=== PATIENT | female | born 1950 | race Hispanic/Latino ===

== ENCOUNTER 2020-02-15 17:37 | Emergency (ER) | payer MEDICARE ==
[~2020-02-15] VITALS: Ht 162.6 cm; Wt 84.8 kg
[2020-02-15 18:30] LABS: BASOPHILS % 0.4 % (0.0-1.0); EOSINOPHILS % 0.6 % (0.0-6.0); HEMATOCRIT 39.6 % (34.2-44.1); HEMOGLOBIN 13.1 g/dL (12.0-16.0); LYMPHOCYTES # (AUTO) 2.3 (1.0-3.2); LYMPHOCYTES % 32.5 % (18.0-39.1); MEAN CORPUSCULAR HEMOGLOBIN 30.3 pg (28-32); MEAN CORPUSCULAR HGB CONC 33.1 g/dL (31-35); MEAN CORPUSCULAR VOLUME 91.5 fL (81-99); MONOCYTES # (AUTO) 0.5 (0.2-0.8); MONOCYTES % 7.5 % (4.4-11.3); NEUTROPHILS # (AUTO) 4.2 (2.1-6.9); NEUTROPHILS % 58.7 % (38.7-80.0); PLATELET COUNT 227 x10e3/uL (140-360); RED BLOOD COUNT 4.33 x10e6/uL (3.6-5.1); RED CELL DISTRIBUTION WIDTH 13.2 % (11.7-14.4)
[2020-02-15 18:44] LABS: ALANINE AMINOTRANSFERASE 50 IU/L (0-55); ALBUMIN 3.6 g/dL (3.5-5.0); ALBUMIN/GLOBULIN RATIO 0.9 (0.8-2.0); ALKALINE PHOSPHATASE 83 IU/L (40-150); BLOOD UREA NITROGEN 14 mg/dL (7-26); BUN/CREATININE RATIO 18 (6-25); CALCIUM 9.7 mg/dL (8.4-10.2); CARBON DIOXIDE 23 mmol/L (22-29); CHLORIDE 108 mmol/L (98-107); CREATINE KINASE 42 IU/L (29-168); EST GLOMERULAR FILTRATION RATE > 60 ML/MIN (60-); GLUCOSE 93 mg/dL (74-118); SODIUM 141 mmol/L (136-145)
--- NOTE | 2020-02-15 18:48 | Emergency Department Note ---
History of Present Illnes History of Present Illness Chief Complaint: COVID PUI History of Present Illness This is a 69 year old female HERE FOR SOB, CP INTERMITTENT FOR 8 MONTHS. NON SMOKER. AAOX4. AMBULATORY. NO NOTED DISTRESSED. SKIN W/D.. states has seen pcp but has not recieved anser to why she has been having this problem, states symptoms have not changed over last 8 months . Historian: Patient Arrival Mode: Car Onset (how long ago): month(s) (8) Location: chest Quality: sob and chest discomfort Radiation: Reports non-radiation Severity: mild Onset quality: gradual Duration (how long): month(s) (8) Timing of current episode: intermittent Progression: waxing and waning Chronicity: recurrent Context: Denies recent illness, Denies recent surgery, Denies trauma/injury Relieving factors: none Exacerbating factors: none Associated symptoms: Reports denies other symptoms Past Medical/Family History Physician Review I have reviewed the patient's past medical and family history. Any updates have been documented here. Past Medical History Recent Fever: No Clinical Suspicion of Infectio: No New/Unexplained Change in Ment: No Past Medical History: Hypertension, GERD Past Surgical History: Cataract Removal Social History Smoking Cessation: Never Smoker Counseling Performed: No Alcohol Use: None Any Illegal Drug Use: No Family History Family history of heart diseas: No Other Any Pre-Existing Lines (PICC,: No Review of Systems Review of Systems Constitutional: Reports no symptoms EENTM: Reports no symptoms Cardiovascular: Reports as per HPI Respiratory: Reports as per HPI Gastrointestinal: Reports no symptoms Genitourinary: Reports no symptoms Musculoskeletal: Reports no symptoms Integumentary: Reports no symptoms Neurological: Reports no symptoms Psychological: Reports no symptoms Endocrine: Reports no symptoms Hematological/Lymphatic: Reports no symptoms Physical Exam Related Data Allergies: Coded Allergies: hydrochlorothiazide (Verified Allergy, Unknown, 02/15/20) Triage Vital Signs Vital Signs Date Time Temp Pulse Resp B/P (MAP) Pulse Ox O2 Delivery O2 Flow Rate FiO2 02/15/20 17:59 97.7 77 18 160/86 100 Room Air Vital signs reviewed: Yes Physical Exam CONSTITUTIONAL Constitutional: Present well-developed, Present well-nourished HENT HENT: Present normocephalic, Present atraumatic, Present oropharynx clear/moist, Present nose normal HENT L/R: Present left ext ear normal, Present right ext ear normal EYES Eyes: Reports PERRL, Reports conjunctivae normal NECK Neck: Present ROM normal PULMONARY Pulmonary: Present effort normal, Present breath sounds normal CARDIOVASCULAR Cardiovascular: Present regular rhythm, Present heart sounds normal, Present capillary refill normal, Present normal rate GASTROINTESTINAL Abdominal: Present soft, Present nontender, Present bowel sounds normal GENITOURINARY Genitourinary: Present exam deferred SKIN Skin: Present warm, Present dry MUSCULOSKELETAL Musculoskeletal: Present ROM normal NEUROLOGICAL Neurological: Present alert, Present oriented x 3, Present no gross motor or sensory deficits PSYCHOLOGICAL Psychological: Present mood/affect normal, Present judgement normal Results Laboratory Result Diagram: 02/15/20 1800 Laboratory Laboratory Tests Test 02/15/20 18:00 White Blood Count 7.07 x10e3/uL (4.8-10.8) Red Blood Count 4.33 x10e6/uL (3.6-5.1) Hemoglobin 13.1 g/dL (12.0-16.0) Hematocrit 39.6 % (34.2-44.1) Mean Corpuscular Volume 91.5 fL (81-99) Mean Corpuscular Hemoglobin 30.3 pg (28-32) Mean Corpuscular Hemoglobin Concent 33.1 g/dL (31-35) Red Cell Distribution Width 13.2 % (11.7-14.4) Platelet Count 227 x10e3/uL (140-360) Neutrophils (%) (Auto) 58.7 % (38.7-80.0) Lymphocytes (%) (Auto) 32.5 % (18.0-39.1) Monocytes (%) (Auto) 7.5 % (4.4-11.3) Eosinophils (%) (Auto) 0.6 % (0.0-6.0) Basophils (%) (Auto) 0.4 % (0.0-1.0) Neutrophils # (Auto) 4.2 (2.1-6.9) Lymphocytes # (Auto) 2.3 (1.0-3.2) Monocytes # (Auto) 0.5 (0.2-0.8) Eosinophils # (Auto) 0.0 (0.0-0.4) Basophils # (Auto) 0.0 (0.0-0.1) Absolute Immature Granulocyte (auto 0.02 x10e3/uL (0-0.1) Sodium Level 141 mmol/L (136-145) Potassium Level 4.0 mmol/L (3.5-5.1) Chloride Level 108 mmol/L (98-107) Carbon Dioxide Level 23 mmol/L (22-29) Anion Gap 14.0 mmol/L (8-16) Blood Urea Nitrogen 14 mg/dL (7-26) Creatinine 0.80 mg/dL (0.57-1.11) Estimat Glomerular Filtration Rate > 60 ML/MIN (60-) BUN/Creatinine Ratio 18 (6-25) Glucose Level 93 mg/dL (74-118) Calcium Level 9.7 mg/dL (8.4-10.2) Total Bilirubin 0.4 mg/dL (0.2-1.2) Aspartate Amino Transf (AST/SGOT) 44 IU/L (5-34) Alanine Aminotransferase (ALT/SGPT) 50 IU/L (0-55) Alkaline Phosphatase 83 IU/L (40-150) Creatine Kinase 42 IU/L (29-168) Creatine Kinase MB 1.20 ng/mL (0-5.0) Troponin I 0.022 ng/mL (0-0.300) B-Type Natriuretic Peptide 37.7 pg/mL (0-100) Total Protein 7.4 g/dL (6.5-8.1) Albumin 3.6 g/dL (3.5-5.0) Globulin 3.8 g/dL (2.3-3.5) Albumin/Globulin Ratio 0.9 (0.8-2.0) Laboratory Tests Test 02/15/20 18:00 White Blood Count 7.07 x10e3/uL (4.8-10.8) Red Blood Count 4.33 x10e6/uL (3.6-5.1) Hemoglobin 13.1 g/dL (12.0-16.0) Hematocrit 39.6 % (34.2-44.1) Mean Corpuscular Volume 91.5 fL (81-99) Mean Corpuscular Hemoglobin 30.3 pg (28-32) Mean Corpuscular Hemoglobin Concent 33.1 g/dL (31-35) Red Cell Distribution Width 13.2 % (11.7-14.4) Platelet Count 227 x10e3/uL (140-360) Neutrophils (%) (Auto) 58.7 % (38.7-80.0) Lymphocytes (%) (Auto) 32.5 % (18.0-39.1) Monocytes (%) (Auto) 7.5 % (4.4-11.3) Eosinophils (%) (Auto) 0.6 % (0.0-6.0) Basophils (%) (Auto) 0.4 % (0.0-1.0) Neutrophils # (Auto) 4.2 (2.1-6.9) Lymphocytes # (Auto) 2.3 (1.0-3.2) Monocytes # (Auto) 0.5 (0.2-0.8) Eosinophils # (Auto) 0.0 (0.0-0.4) Basophils # (Auto) 0.0 (0.0-0.1) Absolute Immature Granulocyte (auto 0.02 x10e3/uL (0-0.1) Lab results reviewed: Yes Imaging Imaging results reviewed: Yes Procedures 12 Lead ECG Interpretation ECG Interpretation : ECG: ECG 1 Check Embosser: Interpreted by ED physician Date: Feb 15, 2020 Time: 18:10 Rhythm: sinus rhythm Rate: normal BPM: 62 QRS axis: normal ST segments normal: Yes T waves normal: Yes Other findings: no other findings Clinical Impression: normal ECG Assessment & Plan Medical Decision Making MDM pt with chest discomfort and sob intermittently for past 8 months cbc. 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
--- NOTE | 2020-02-15 20:11 | Diagnostic Imaging Report ---
EXAMINATION: CHEST SINGLE (PORTABLE) INDICATION: Shortness of breath. COMPARISON: None FINDINGS: TUBES and LINES: None. LUNGS: Normal lung volumes. There are bibasilar opacities. PLEURA: No pleural effusion or pneumothorax. HEART AND MEDIASTINUM: The cardiomediastinal silhouette is unremarkable. BONES AND SOFT TISSUES: No acute osseous lesion. Soft tissues are unremarkable. UPPER ABDOMEN: No free air under the diaphragm. IMPRESSION: Bibasilar opacities which may represent atelectasis and/or developing pneumonia in the proper clinical context. Signed by: Mendy Jonas MD on 02/15/2020 8:08 PM
[2020-02-15 20:40] VITALS: BP 156/79
--- OUTSIDE RECORDS SUMMARY | 2020-02-15 21:36 | XMS REPORT | Clinical Summary ---
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 Drink as directed by your doctor.. Active Bisacodyl 5 mg Take by 4 tablet 0 TabIndications: Positive mouth. 5 occult stool blood test Active polyethylene glycol Add lukewarm 4000 mL 0 10/02 (GOLYTELY) 236-22.74-6.74 drinking 6 -5.86 gram oral water to the solutionIndications: fill parish (4 Occult blood positive liters) and stool shake. Drink as directed by your doctor.. Active triamcinolone (TRIDERM) Apply to 80 g 3 0.1 % topical affected area 6 creamIndications: Stasis 2 times daily dermatitis of both legs as needed (for leg rash or itching). Active fluocinonide (LIDEX) 0.05 Apply to 60 mL 3 % external affected area 6 solutionIndications: 2 times daily Sebopsoriasis as needed (scalp rash or itching). Active ketoconazole (NIZORAL) 2 Lather into 120 mL 5 0 % shampooIndications: scalp three 6 Seborrhea times a week. Then rinse off.. Active ibuprofen (MOTRIN) 600 mg Take 1 tablet 30 tablet 0 tabletIndications: Closed by mouth 6 fracture of one rib of every 8 hours left side, sequela as needed for Pain. Active alendronate (FOSAMAX) 35 Take 1 tablet 12 tablet 6 mg tabletIndications: once a week 6 Osteopenia on empty stomach with 8 oz of water and remain upright for 30 minutes. Active Problems Problem Noted Date Left posterior capsular opacification 11/08/2016 Osteopenia - starting on fosamax 04/05/2016 Squamous cell carcinoma in situ of skin - shave biops y of abdominal lesion 11/24/2015 Prediabetes 07/01/2015 Positive occult stool blood test colonscopy done dive rticulosis, AVM and 06/14/2015 internal hemorroids Macular hole of left eye 07/15/2014 Cataract 07/15/2014 Vitreomacular traction 07/15/2014 Obese 06/07/2014 Refusal of blood transfusions as patient is [employer] 05/31/2014 HTN (hypertension) - diet controlled 12/13/2012 Depression with anxiety -Used to be on celexa stopped taking it 09/01/2012 Overview: Used to be on celexa stopped taking it Non-cardiac chest pain 07/13/2012 Overview: S/p NM 2013 1. Myocardial perfusion imaging is norm al. 2. No scan evidence of ischemia or scar 3. Overall left ventricular systolic fu nction is normal with normal wall motion. 4. Normal gated SPECT left ventricular ejection fraction >54%. Depression with somatization - not on meds 2 Immunizations Name Administration Dates Next Due Herpes Zoster Vaccine In 07/01/2015 Clinic Influenza Vaccine 07/13/2012 (Deferred: Patie nt Refused) PNEUMOCOCCAL 23-VALPS 07/13/2012 (Deferred: Patie nt Refused) VACCINE 25 MCG/0.5 ML INJECTION PPV 23 Pneumococcal 11/19/2013 Polysaccaride Pneumococcal 13-valent 03/26/2016 conj 0.5 mL injection Tdap Tetanus, diphtheria, 12/20/2012 acellular pertussis Vaccine Family History Medical History Relation Name Comments Hypertension Mother Relation Name Status Comments Mother Alive Social History Date Tobacco Use Types Packs/Day Years Used Never Smoker Smokeless Tobacco: Never Used Tobacco Cessation: Counseling Given: Yes Drinks/Week oz/Week Comments Alcohol Use No Sex Assigned at Date Recorded Not on file Industry Job Start Date Occupation Not on file Not on file Not on file Travel End Travel History Travel Start No recent travel history available. Last Filed Vital Signs Not on file Plan of Treatment Health Maintenance Due Date Last Done Comments Breast Cancer Scrn 07/02/2016 07/02/2015, (Yearly) 12/12/2013, 10/27/2012 Colonoscopy 10yr 12/18/2025 12/19/2015 IMM Pneumococcal Age 63 Addressed 03/26/2016 Overri dden with the intention of not completing and Up the topic Implants Device Identifier Shelf Expiration Date Model / Serial / L ot Implanted Type Area Manufactur er 05/16/2018 / [id number] / Implant [employer] 1 Piece Implant Left: Eye(s) [id number] 19.0d - [id number] eye Implanted: Qty: 1 on 06/24/2014 by Ever Sanz, Resident () at [facility] 03/20/2019 / [id number] / Implant [employer] 1 Piece Implant Right : Eye(s) [id number] 20.0d - [id number] eye Implanted: Qty: 1 on 05/19/2015 at [facility] Results Not on fileafter 02/14/2019 Insurance Type Payer Benefit Subscriber ID Effective Phone Address Plan / Dates Group AETNA MEDICARE AETNA xxxxxxxx 2013- [phone] [address] [facility] Present [address] [place] [address] Advance Directives Date Inactivated Comments Code Status Date Activated 07/13/2012 1:11 PM Full Code 07/13/2012 12:11 AM
--- OUTSIDE RECORDS SUMMARY | 2020-02-15 21:36 | XMS REPORT | Continuity of Care Document ---
Author Author [facility] t Organization [facility] Address [address] [place] [address] Phone Unavailable Care Team Providers Care [facility] Consultant Name Role Phone NONSTAFF PCP Unavailable Dann STEPHEN Unavailable Payers Payer Name Policy Type Policy Number Effective Date Expiration Date 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 Disease Active 2015-11-24 00:00:00 [facility] Prediabetes Prediabetes Disease Active 2015-07-01 00:00:00 [facility] Positive occult stool blood test colonsc opy done diverticulosis, AVM and internal hemorroids Positive occult stool blood test colonsc opy done diverticulosis, AVM and internal hemorroids Disease Active 2014 00:00:00 [facility] Macular hole of left eye Macular hole of left eye Disease Acti ve 2014-07-15 00:00:00 [facility] Cataract Cataract Disease Active 2014-07-15 00:00:00 [facility] Vitreomacular traction Vitreomacular traction Disease Active 2014-07-15 00:00:00 [facility] Obese Obese Disease Active 2014-06-07 00:00:00 [facility] Refusal of blood transfusions as patient is Anglican Refusal of blood transfusions as patient is Anglican Disease Active 201 10-26-13 00:00:00 [facility] HTN (hypertension) - diet controlled HTN (hypertension) - di et controlled Disease Active 2012-12-13 00:00:00 [facility] Depression with anxiety -Used to be on celexa stopped taking it Depression with anxiety -Used to be on celexa stopped taking it Disease Active 2012-09-01 00:00:00 Overview: Used to be on arin xa stopped taking it [facility] Non-cardiac chest pain Non-cardiac chest pain Disease Active 2012-07-13 00:00:00 Overview: S/p NM . Myocardial perfusion imaging is normal. 2. No scan evidence of ischemia or scar 3. Overall left ventricular systolic function is normal with normal wall motion. 4. Normal gated SPECT left ventricular ejection fraction >54%. [facility] Depression with somatization - not on meds Depression with somatization - not on meds Disease Active 2012-07-13 00:00:00 [facility] Dyspnea Problem Active [facility] Chest discomfort Problem Active [facility] Allergies, Adverse Reactions, Alerts Allergy Name Allergy Type Status Severity Reaction(s) Onset Date Inacti ve Date Treating Clinician Comments Source Hydrochlorothiazide Allergy to substance Active 2020-02-15 00:00:00 [facility] hydrochlorothiazide DA Active U 2019-03-03 00:00:00 [facility] unknown htn med DA Active SV 2017-10-23 00:00:00 [facility] Hydrochlorothiazide Propensity to adverse reactions to drug Active Other 2014-05-31 00:00:00 Headaches, arm pain, fatigue [facility] Aspirin Propensity to adverse reactions to drug Active 2014-03-05 00:00:00 Pt reports bruising in past upon taking every other day and pt refuses to take it [facility] Family History Family Member Diagnosis Comments Start Date Stop Date Source Natural mother Hypertension [facility] Social History Social Habit Start Date Stop Date Quantity Comments Source Sex Assigned At [facility] Alcohol intake 2016-11-19 00:00:00 2016-11-19 00:00:00 Current non-drinker of alcohol (finding) [facility] Smoking Status Start Date Stop Date Source Never smoker [facility] Medications Ordered Medication Name Filled Medication Name Start Date Stop Da te Current Medication? Ordering Clinician Indication Dosage Frequency Signature (SIG) Comments Components Source alendronate (FOSAMAX) 35 mg tablet 2016-04-05 00:00:00 Yes Osteopenia Take 1 tablet once a week on empty stomach with 8 oz of water and remain upright for 30 minutes. [facility] ibuprofen (MOTRIN) 600 mg tablet 2016-02-19 00:00:00 Yes Closed fracture of one rib of left side, sequela 600mg Take 1 tablet by mouth every 8 hours as needed for Pain. [facility] ketoconazole (NIZORAL) 2 % shampoo 2015-12-25 00:00:00 Yes Seborrhea Lather into scalp three times a week. Then rinse off.. [facility] triamcinolone (TRIDERM) 0.1 % topical cream 2015-11-19 00:00 :00 Yes Stasis dermatitis of both legs Apply to affecte d area 2 times daily as needed (for leg rash or itching). [facility] fluocinonide (LIDEX) 0.05 % external solution 2015-11-19 00: 00:00 Yes Sebopsoriasis Apply to affected ar ea 2 times daily as needed (scalp rash or itching). [facility] polyethylene glycol (GOLYTELY) 236-22.74-6.74 -5.86 gram ora l solution 2015-10-03 00:00:00 Yes Occult blood positive stool Add lukewarm drinking water to the fill [place] (4 liters) and shake. Drink as directed by your doctor.. [facility] Bisacodyl 5 mg Tab 2015-07-01 00:00:00 Yes Positive occult stool blood test Take by mouth. [facility] polyethylene glycol (GOLYTELY) 236-22.74-6.74 -5.86 gram ora l solution 2015-06-14 00:00:00 Yes Positive occult stool blood te st Add lukewarm drinking water to the [place] (4 liters) and shake. Drink as directed by your doctor.. [facility] Immunizations Ordered Immunization Name Filled Immunization Name Date Status Comments Source Pneumococcal 13-valent conj 0.5 mL injection 2016-03-26 00 :00:00 Completed [facility] Herpes Zoster Vaccine In Clinic 2015-07-01 00:00:00 Comple karen [facility] PPV 23 Pneumococcal Polysaccaride 2013-11-19 00:00:00 Comp leted [facility] Tdap Tetanus, diphtheria, acellular pertussis Vaccine 2012-12-20 00:00:00 Completed [facility] Vital Signs Vital Name Observation Time Observation Value Comments Source Weight 2020-02-15 17:59:00 187 [lb_av] [facility] BMI (Body Mass Index) 2020-02-15 17:59:00 32.1 kg/m2 [facility] Procedures This patient has no known procedures. Plan of Care Planned Activity Planned Date Details Comments Source Future Scheduled Test 2025-12-18 00:00:00 Screening for terri gnant neoplasm of colon (procedure) [code = 979273572] [facility] Future Scheduled Test 2016-07-02 00:00:00 Breast Cancer Scrn (Yearly) [code = Breast Cancer Scrn (Yearly)] [facility] Encounters Start Date/Time End Date/Time Encounter Type Admission Type [email or web address] Care Department Encounter ID Source 2020-02-15 18:41:00 2020-02-15 18:41:00 Registered Emergency Room 1 VALERY STEPHEN [facility] [id number] I [facility] 2015-08-08 13:11:48 2015-08-08 13:11:48 Outpatient [facility] [id number] [facility] Results Test Description Test Time Test Comments Results Result Comments Source CHEST SINGLE (PORTABLE) 2020-02-15 20:07:00 [facility] [address] [place] [address] Patient Name: KAVEH MEDINA MR #: [id number] : 1950 Age/Sex: 69/F Req #: [id number] Adm Physician: Ordered by: VALERY STEPHEN MD Report #: [id number] Location: ER Room/Bed: Procedure: [id number] DX/CHEST SINGLE (PORTABLE) Exam Date: 02/15/20 Exam Time: 1900 REPORT STATUS: Signed EXAMINATION: CHEST SINGLE (PORTABLE) INDICATION: Shortness of breath. COMPARISON: None FINDINGS: TUBES and LINES: None. LUNGS: Normal lung volumes. There are bibasilar opacities. PLEURA: No pleural effusion or pneumothorax. HEART AND MEDIASTINUM: The cardiomediastinal silhouette is unremarkable. BONES AND SOFT TISSUES: No acute osseous lesion. Soft tissues are unremarkable. UPPER ABDOMEN: No free air under the diaphragm. IMPRESSION: Bibasilar opacities which may represent atelectasis and/or developing pneumonia in the proper clinical context. Signed by: Jarod Clay MD on 02/15/2020 8:08 PM Dictated By: JAROD CLAY MD 07 Transcribed By: NARESH on 02/15/202007 COPY TO: VALERY STEPHEN MD Blood leukocytes automated count (number/volume) 2020-02-15 18:00:00 Test Item White Blood Count (test code = 6690-2) 7.07 4.8-10.8 [facility] count (number/volume)2020-02-15 18:00:00* Test Item Value Reference Range Interpretation Comments Red Blood Count (test code = 789-8) 4.33 3.6-5.1 [facility] measurement (moles/volume)2020-02-15 18:00:00* Test Item Value Reference Range Interpretation Comments Hemoglobin (test code = 72659-1) 13.1 12.0-16.0 [facility] Center[facility]ated blood hematocrit (volume fraction)2020-02-15 18:00:00* Test Item Value Reference Range Interpretation Comments Hematocrit (test code = 4544-3) 39.6 34.2-44.1 [facility] Center[facility] erythrocyte mean corpuscular [id number] 18:00:00* Test Item Value Reference Range Interpretation Comments Mean Corpuscular Volume (test code = 787-2) 91.5 81-99 [facility] Center[facility] erythrocyte mean corpuscular hemoglobin (mass per erythrocyte)2020-02-15 18:00:00* Test Item Value Reference Range Interpretation Comments Mean Corpuscular Hemoglobin (test code = 785-6) 30.3 28-32 [facility] CenterAutom[facility] erythrocyte mean corpuscular hemoglobin concentration measurement (mass/volume)2020-02-15 18:00:00* Test Item Value Reference Range Interpretation Comments Mean Corpuscular Hemoglobin Concent (test code = 786-4) 33.1 31-35 [facility] CenterRDW AtpYf-[id number] 18:00:00* Test Item Value Reference Range Interpretation Comments Red Cell Distribution Width (test code = 72154-6) 13.2 11.7 -14.4 [facility] Center[facility] blood platelet count (count/volume)2020-02-15 18:00:00* Test Item Value Reference Range Interpretation Comments Platelet Count (test code = 777-3) 227 140-360 [facility] CenterAutunc healthed blood segmented neutrophil count as percentage of total [id number] 18:00:00* Test Item Value Reference Range Interpretation Comments Neutrophils (%) (Auto) (test code = 79850-5) 58.7 38.7-80.0 [facility] CenterAutomated blood lymphocyte count as percentage ot total wfpjvppjnc7225-13-51 18:00:00* Test Item Value Reference Range Interpretation Comments Lymphocytes (%) (Auto) (test code = 736-9) 32.5 18.0-39.1 [facility] CenterAutomated blood monocyte count as percentage of total sfslzmbkey4104-49-41 18:00:00* Test Item Value Reference Range Interpretation Comments Monocytes (%) (Auto) (test code = 5905-5) 7.5 4.4-11.3 [facility] CenterAutomated blood eosinophil count as percentage of total zgkgtpeyzw6718-91-94 18:00:00* Test Item Value Reference Range Interpretation Comments Eosinophils (%) (Auto) (test code = 713-8) 0.6 0.0-6.0 [facility] CenterAutomated blood basophil count as percentage of total etxdxvychc5819-61-93 18:00:00* Test Item Value Reference Range Interpretation Comments Basophils (%) (Auto) (test code = 706-2) 0.4 0.0-1.0 [facility] CenterFluoroscopic procedure less than one hour [id number] 18:00:00* Test Item Value Reference Range Interpretation Comments IM GRANULOCYTES % (test code = IM GRANULOCYTES %) 0.3 0.0- 1.0 [facility] CenterAutomated blood neutrophil count 2020-02-15 18:00:00* Test Item Value Reference Range Interpretation Comments Neutrophils # (Auto) (test code = 751-8) 4.2 2.1-6.9 [facility] Center[facility] lymphocytes count (number/volume) 2020-02-15 18:00:00* Test Item Value Reference Range Interpretation Comments Lymphocytes # (Auto) (test code = 88087-0) 2.3 1.0-3.2 [facility] CenterBlood monocytes automated count (number/volume)2020-02-15 18:00:00* Test Item Value Reference Range Interpretation Comments Monocytes # (Auto) (test code = 742-7) 0.5 0.2-0.8 [facility] CenterAutomated blood eosinophil count 2020-02-15 18:00:00* Test Item Value Reference Range Interpretation Comments Eosinophils # (Auto) (test code = 711-2) 0.0 0.0-0.4 [facility] CenterAutomated blood basophil count (count/volume)2020-02-15 18:00:00* Test Item Value Reference Range Interpretation Comments Basophils # (Auto) (test code = 704-7) 0.0 0.0-0.1 [facility] CenterFluoroscopic procedure less than one hour khwohzoo7611-06-16 18:00:00* Test Item Value Reference Range Interpretation Comments Absolute Immature Granulocyte (auto (larry t code = Absolute Immature Granulocyte (auto) 0.02 0-0.1 [facility] sodium [facility] (moles/volume)2020-02-15 18:00:00* Test Item Value Reference Range Interpretation Comments Sodium Level (test code = 2951-2) 141 136-145 [facility] potassium measurement (moles/volume)2020-02-15 18:00:00* Test Item Value Reference Range Interpretation Comments Potassium Level (test code = 2823-3) 4.0 3.5-5.1 [facility] chloride measurement (moles/volume)2020-02-15 18:00:00* Test Item Value Reference Range Interpretation Comments Chloride Level (test code = 2075-0) 108 98-107 [facility] plasma carbon dioxide, total measurement (moles/volume)2020-02-15 18:00:00* Test Item Value Reference Range Interpretation Comments Carbon Dioxide Level (test code = 2028-9) 23 22-29 [facility] plasma anion [id number] 18:00:00* Test Item Value Reference Range Interpretation Comments Anion Gap (test code = 38677-8) 14.0 8-16 [facility] urea nitrogen measurement (mass/volume)2020-02-15 18:00:00* Test Item Value Reference Range Interpretation Comments Blood Urea Nitrogen (test code = 3094-0) 14 7-26 [facility] creatinine measurement (mass/volume)2020-02-15 18:00:00* Test Item Value Reference Range Interpretation Comments Creatinine (test code = 2160-0) 0.80 0.57-1.11 [facility] plasma urea nitrogen/creatinine mass twlkd5596-57-69 18:00:00* Test Item Value Reference Range Interpretation Comments BUN/Creatinine Ratio (test code = 3097-3) 18 6-25 [facility] CenterEstimated glomerular filtration rate (GFR) mwfkrcgmnoace5103-90-05 18:00:00* Test Item Value Reference Range Interpretation Comments Estimat Glomerular Filtration Rate (test code = 543366345) > 60 >60 Ranges were taken from the National Kidney Disease Education Program and the [facility] literature.Reference ranges:60 or greater: Lxdrez92-54 ( for 3 consecutive months): Chronic kidney disease 15 or less: Kidney failureHereford Regional Medical CenterGlucose ncwhpxdwrsm3997-83-65 18:00:00* Test Item Value Reference Range Interpretation Comments Glucose Level (test code = ZKM8410) 93 74-118 [facility] or plasma calcium measurement (mass/volume)2020-02-15 18:00:00* Test Item Value Reference Range Interpretation Comments Calcium Level (test code = 12868-2) 9.7 8.4-10.2 [facility] plasma total bilirubin measurement (mass/volume)2020-02-15 18:00:00* Test Item Value Reference Range Interpretation Comments Total Bilirubin (test code = 1975-2) 0.4 0.2-1.2 [facility] CenterFluoroscopic procedure less than one hour xoaolrlv5687-12-31 18:00:00* Test Item Value Reference Range Interpretation Comments Aspartate Amino Transf (AST/SGOT) (test code = Aspartate Amino Transf (AST/SGOT)) 44 5-34 [facility] or plasma alanine aminotransferase measurement (enzymatic activity/volume)2020-02-15 18:00:00* Test Item Value Reference Range Interpretation Comments Alanine Aminotransferase (ALT/SGPT) (test code = 1742-6) 50 0-55 [facility] or plasma protein measurement (mass/volume)2020-02-15 18:00:00* Test Item Value Reference Range Interpretation Comments Total Protein (test code = 2885-2) 7.4 6.5-8.1 [facility] or plasma albumin measurement (mass/volume)2020-02-15 18:00:00* Test Item Value Reference Range Interpretation Comments Albumin (test code = 1751-7) 3.6 3.5-5.0 [facility] CenterPlasma globulin measurement (mass/volume) 2020-02-15 18:00:00* Test Item Value Reference Range Interpretation Comments Globulin (test code = 58041-6) 3.8 2.3-3.5 [facility] albumin/globulin mass ewqvi1606-10-60 18:00:00* Test Item Value Reference Range Interpretation Comments Albumin/Globulin Ratio (test code = 1759-0) 0.9 0.8-2.0 [facility] plasma alkaline phosphatase measurement (enzymatic activity/volume)2020-02-15 18:00:00* Test Item Value Reference Range Interpretation Comments Alkaline Phosphatase (test code = 6768-6) 83 40-150 [facility] CenterBNP Wsc-[id number] 18:00:00* Test Item Value Reference Range Interpretation Comments B-Type Natriuretic Peptide (test code = 97851-3) 37.7 0-100 [facility] or plasma creatine kinase measurement (enzymatic activity/volume)2020-02-15 18:00:00* Test Item Value Reference Range Interpretation Comments Creatine Kinase (test code = 2157-6) 42 29-168 [facility] or plasma creatine kinase MB measurement (mass/volume)2020-02-15 18:00:00* Test Item Value Reference Range Interpretation Comments Creatine Kinase MB (test code = 62823-7) 1.20 0-5.0 [facility] CenterTroponin I measurement by highly sensitive enzyme hryteyugpkh1851-44-50 18:00:00* Test Item Value Reference Range Interpretation Comments Troponin I (test code = 44575-1) 0.022 0-0.300 [facility] CenterCOMPREHENSIVE METABOLIC [id number] 07:38:00* Test Item Value Reference Range Interpretation Comments SODIUM (test code = NA) 143 mEq/L 134-147 N POTASSIUM (test code = K) 3.6 mEq/L 3.4-5.0 N CHLORIDE (test code = CL) 113 mEq/L 100-108 H CARBON DIOXIDE (test code = CO2) 24 mEq/L 21-33 N ANION GAP (test code = GAP) 10 0-20 N GLUCOSE (test code = GLU) 83 mg/dL 70-110 N BLOOD UREA NITROGEN (test code = BUN) 13 mg/dL 7-18 GLOMERULAR FILTRATION RATE (test code = GFR) 82.7 70-80 H Units of measure = ml/min/1.73 m2 CREATININE (test code = CREAT) 0.7 mg/dL 0.6-1.3 N TOTAL PROTEIN (test code = PROT) 6.7 g/dL 6.4-8.2 N ALBUMIN (test code = ALB) 3.00 g/dL 3.4-5.0 L CALCIUM (test code = CA) 9.2 mg/dL 8.0-10.5 N BILIRUBIN TOTAL (test code = BILT) 0.60 mg/dL 0.0-1.0 N SGOT/AST (test code = AST) 59 IUnit/L 15-37 H SGPT/ALT (test code = ALT) 76 IUnit/L 15-65 H ALKALINE PHOSPHATASE TOTAL (test code = ALKP) 67 IUnit/L 20-125 N LIPID PROFILE (CORONARY RISK)2019-03-05 07:38:00* Test Item Value Reference Range Interpretation Comments TRIGLYCERIDES (test code = TRIG) 78 mg/dL 40-150 N CHOLESTEROL (test code = CHOL) 161 mg/dL <200 CHOLESTEROL/HDL RATIO (test code = CHOLHDL) 3.29 RATIO 3.27-4.44 N RISK ASSOCIATED WITH CHOL/HDL RATIOS: RISK MALE FEMALE1/2 AVERAGE 3.43 3.27AVERAGE 4.97 4.442X AVERAGE 9.55 7.053X AVERAGE 23.39 11.04 NOTE THAT THE REFERENCE VALUE IS RELATEDTO RISK LEVELS RECOMMENDED BY THE NATL.HEART, LUNG, AND BLOOD INST. HDL CHOLESTEROL (test code = HDL) 49.0 mg/dL 39-96 N LIPOPROTEIN LDL (test code = LDL) 105 mg/dL 0-100 H <100 [id number] NEAR OPTIMAL/ABOVE [id number] [id number] HIGH>XG=127 VERY HIGH*Guidelines provided by the National Cholesterol EducationProgram Adult Treatment Panel III CBC W/AUTO [id number] 07:11:00* Test Item Value Reference Range Interpretation Comments WHITE BLOOD CELL (test code = WBC) 6.59 x10 3/uL 4.5-11.0 N RED BLOOD CELL (test code = RBC) 3.43 x10 6/uL 3.54-5.02 L HEMOGLOBIN (test code = HGB) 11.6 g/dL 11.0-15.0 N HEMATOCRIT (test code = HCT) 35.4 % 33.0-45.0 N MEAN CELL VOLUME (test code = MCV) 103.2 fL 81.0-99.0 H MEAN CELL HGB (test code = MCH) 33.8 pg 27.0-33.0 H MEAN CELL HGB CONCETRATION (test code = MCHC) 32.8 g/dL 33.0-37. 0 L RED CELL DISTRIBUTION WIDTH CV (test code = RDW) 13.9 % 11.5- 14.5 N RED CELL DISTRIBUTION WIDTH SD (test code = RDW-SD) 53.2 fL 37 .0-54.0 N PLATELET COUNT (test code = PLT) 198 x10 3/uL 150-400 N MEAN PLATELET VOLUME (test code = MPV) 12.2 fL 7.0-9.0 H NEUTROPHIL % (test code = NT%) 49.2 % 56.0-77.0 L IMMATURE GRANULOCYTE % (test code = IG%) 0.3 % 0.0-2.0 N LYMPHOCYTE % (test code = LY%) 40.5 % 14.0-32.0 H MONOCYTE % (test code = MO%) 8.6 % 4.8-9.0 N EOSINOPHIL % (test code = EO%) 0.8 % 0.3-3.7 N BASOPHIL % (test code = BA%) 0.6 % 0.0-2.0 N NUCLEATED RBC % (test code = NRBC%) 0.0 % 0-0 N NEUTROPHIL # (test code = NT#) 3.24 x10 3/uL 2.0-7.6 N IMMATURE GRANULOCYTE # (test code = IG#) 0.02 x10 3/uL 0.00-0.03 N LYMPHOCYTE # (test code = LY#) 2.67 x10 3/uL 1.0-3.8 N MONOCYTE # (test code = MO#) 0.57 x10 3/uL 0.1-0.8 N EOSINOPHIL # (test code = EO#) 0.05 x10 3/uL 0.0-0.2 N BASOPHIL # (test code = BA#) 0.04 x10 3/uL 0.0-0.2 N NUCLEATED RBC # (test code = NRBC#) 0.00 x10 3/uL 0.0-0.1 N MANUAL DIFF REQUIRED (test code = MDIFF) NO ACUTE HEPATITIS [id number] 21:48:00* Test Item Value Reference Range Interpretation Comments AB HEPATITIS A IGM (test code = HAVMAB) NON REACTIVE INDEX NON REAC T. AG HEPATITIS B SURFACE (test code = HBSAG) NON REACTIVE INDEX NonRe active AB HEPATITIS B CORE IGM (test code = HBCMAB) NON REACTIVE INDEX NON REACT. AB HEPATITIS C (test code = HCVAB) NON REACTIVE INDEX NON REACT. SERUM [id number] 21:25:00* Test Item Value Reference Range Interpretation Comments SERUM IRON (test code = IRON) 45 mcg/dL 35-150 N VITAMIN [id number] 21:25:00* Test Item Value Reference Range Interpretation Comments VITAMIN B12 (test code = VITB12) 131 pg/mL 193-986 L THYROID STIMULATING [id number] 21:25:00* Test Item Value Reference Range Interpretation Comments THYROID STIMULATING HORMONE (test code = TSH) 0.56 0.42-5.4 7 N Results in [employer]- International Units/mL - CT ABD PELVIS [id number] 17:10:00 Name: KAVEH MEDINA [facility] : 1950 Age/S: 68 / F [address] [place] [address] Unit #: [id number] Loc: [place] [address] Phys: Darien Lopez MD Acct: [id number] Dis Date: Status: ADM IN PHONE #: [phone] Exam Date: 03/04/2019 1654 FAX #: [phone] Reason: admitted with n/v and elevated lft's and fever EXAMS: CPT CODE: [id number] CT ABD PELVIS W/CONT 75842 PROCEDURE: CT ABDOMEN AND PELVIS WITH CONTRAST INDICATION: Nausea, vomiting, fever COMPARISON: Comparison made to 10/22/17. TECHNIQUE: Helical imaging was performed diaphragm through the symphysis with multiplanar reconstructions. IV CONTRAST: 100 mL Isovue-300. GI CONTRAST: None. CT imaging performed at this location utilizes radiation dose optimization techniques which include one or more of the following: -Automated exposure control -Adjustment of the mA and/or kV according to patient size -Use of iterative reconstruction technique CT Radiation Dose DLP 536 mGy-cm FINDINGS: LOWER CHEST: The lung bases are clear. LIVER: Hepatic steatosis. Mildly micronodular liver contour, consider underlying cirrhosis. No focal hepatic abnormality GALLBLADDER: Cholelithiasis. No gallbladder distention, wall thickening, or jessica cholecystic fluid. No intra or extrahepatic biliary ductal dilatation SPLEEN: Normal. PANCREAS: Normal. ADRENAL S: Normal. KIDNEYS: Normal. BOWEL: The stomach, smal l bowel and colon are unremarkable. APPENDIX: Normal. PERITONEUM: No free intraperitoneal fluid or air. RETROPERITONEU M: No adenopathy. The abdominal aorta shows mild atherosclerotic plaque, no aneurysmal dilatation. PELVIS: No pelvic mass. The urinary blad lay is normal. PAGE 1 Signed Report (CONTINUED) Name: KAVEH MEDINA [facility] : 1950 Age/S: 68 / F [address] [place] [address] Blvd Unit #: [id number] Loc: [place] [address] ys: Darien Lopez MD Acct: [id number] Dis Date: Status: ADM IN PHONE #: [phone] Exam Date: 03/04/2019 1656 FAX #: [phone] Reason: admitted with n/v and elevated lft's and fever EXAMS: CPT CODE: [id number] CT ABD PELVIS W/CONT 07857 <Continued> MUSCULOSKELETAL: The lumbar degenerative disc disease. IMPRESSION: 1. Hepatic steatosis. Mildly micronodular liver contour, consider underlying cirrhosis. 2. Cholelithiasis, no evidence for cholecystitis. 3. No source for the clinically described fever, no bowel obstruction demonstrated given the clinically described nodule and vomiting. SL:01 at 1710 Reported and signed by: Alfred cobb M.D. CC: Vinnie Olson; Jada Winston MD; Darien Lopez MD Technologist:Donald Edge, RT(R) CTDI: DLP: Trnscb Date/Time: 03/04/2019 (1710) [email or web address] Orig Print D/T: S: 03/04/2019 (2967) PAGE 2 Signed Report BASIC METABOLIC [id number] 08:55:00* Test Item Value Reference Range Interpretation Comments SODIUM (test code = NA) 144 mEq/L 134-147 N POTASSIUM (test code = K) 3.5 mEq/L 3.4-5.0 N CHLORIDE (test code = CL) 112 mEq/L 100-108 H CARBON DIOXIDE (test code = CO2) 23 mEq/L 21-33 N ANION GAP (test code = GAP) 13 0-20 N GLUCOSE (test code = GLU) 80 mg/dL 70-110 BLOOD UREA NITROGEN (test code = BUN) 10 mg/dL 7-18 N GLOMERULAR FILTRATION RATE (test code = GFR) 98.8 70-80 H Units of measure = ml/min/1.73 m2 CREATININE (test code = CREAT) 0.6 mg/dL 0.6-1.3 N CALCIUM (test code = CA) 9.1 mg/dL 8.0-10.5 N HEPATIC FUNCTION [id number] 08:55:00* Test Item Value Reference Range Interpretation Comments TOTAL PROTEIN (test code = PROT) 6.6 g/dL 6.4-8.2 ALBUMIN (test code = ALB) 3.00 g/dL 3.4-5.0 L BILIRUBIN TOTAL (test code = BILT) 0.80 mg/dL 0.0-1.0 N BILIRUBIN DIRECT (test code = BILD) 0.20 MG/DL 0.0-0.30 N BILIRUBIN INDIRECT (test code = BILIND) 0.60 MG/DL SGOT/AST (test code = AST) 43 IUnit/L 15-37 H SGPT/ALT (test code = ALT) 62 IUnit/L 15-65 N ALKALINE PHOSPHATASE TOTAL (test code = ALKP) 64 IUnit/L 20-125 N CBC W/AUTO [id number] 08:45:00* Test Item Value Reference Range Interpretation Comments WHITE BLOOD CELL (test code = WBC) 8.02 x10 3/uL 4.5-11.0 N RED BLOOD CELL (test code = RBC) 3.28 x10 6/uL 3.54-5.02 L HEMOGLOBIN (test code = HGB) 11.3 g/dL 11.0-15.0 N HEMATOCRIT (test code = HCT) 33.9 % 33.0-45.0 N MEAN CELL VOLUME (test code = MCV) 103.4 fL 81.0-99.0 H MEAN CELL HGB (test code = MCH) 34.5 pg 27.0-33.0 H MEAN CELL HGB CONCETRATION (test code = MCHC) 33.3 g/dL 33.0-37. 0 N RED CELL DISTRIBUTION WIDTH CV (test code = RDW) 13.7 % 11.5- 14.5 N RED CELL DISTRIBUTION WIDTH SD (test code = RDW-SD) 52.6 fL 37 .0-54.0 N PLATELET COUNT (test code = PLT) 196 x10 3/uL 150-400 N MEAN PLATELET VOLUME (test code = MPV) 12.2 fL 7.0-9.0 H NEUTROPHIL % (test code = NT%) 53.2 % 56.0-77.0 L IMMATURE GRANULOCYTE % (test code = IG%) 0.2 % 0.0-2.0 N LYMPHOCYTE % (test code = LY%) 37.8 % 14.0-32.0 H MONOCYTE % (test code = MO%) 8.1 % 4.8-9.0 N EOSINOPHIL % (test code = EO%) 0.2 % 0.3-3.7 L BASOPHIL % (test code = BA%) 0.5 % 0.0-2.0 N NUCLEATED RBC % (test code = NRBC%) 0.0 % 0-0 N NEUTROPHIL # (test code = NT#) 4.26 x10 3/uL 2.0-7.6 N IMMATURE GRANULOCYTE # (test code = IG#) 0.02 x10 3/uL 0.00-0.03 N LYMPHOCYTE # (test code = LY#) 3.03 x10 3/uL 1.0-3.8 N MONOCYTE # (test code = MO#) 0.65 x10 3/uL 0.1-0.8 N EOSINOPHIL # (test code = EO#) 0.02 x10 3/uL 0.0-0.2 N BASOPHIL # (test code = BA#) 0.04 x10 3/uL 0.0-0.2 N NUCLEATED RBC # (test code = NRBC#) 0.00 x10 3/uL 0.0-0.1 N MANUAL DIFF REQUIRED (test code = MDIFF) NO [id number] 02:15:00* Test Item Value Reference Range Interpretation Comments TROPONIN-I (test code = TROPI) < 0.015 ng/mL 0.000-0.045 N Negative: <= 0.045 Positive: >= 0.046 Correlation with serial results, other cardiac markers andclinical findings is necessary to determine the clinicalsignificance of this result. Results using different methodologies should not be comparedto one another as quantitative results may vary by method. COMMENTS: 3 troponins total (including troponin done in ED)[id number] 23:31:00* Test Item Value Reference Range Interpretation Comments TROPONIN-I (test code = TROPI) < 0.015 ng/mL 0.000-0.045 N Negative: <= 0.045 Positive: >= 0.046 Correlation with serial results, other cardiac markers andclinical findings is necessary to determine the clinicalsignificance of this result. Results using different methodologies should not be comparedto one another as quantitative results may vary by method. COMMENTS: 3 troponins total (including troponin done in ED)- CT HEAD/BRAIN W/O [id number] 22:36:00 Name: KAVEH MEDINA [facility] : 1950 Age/S: 68 / F [address] [place] [address] Unit #: [id number] Loc: [place] [address] Phys: Osei Elizabeth MD Acct: [id number] Dis Date: Status: ADM IN PHONE #: [phone] Exam Date: 03/03/2019 2143 FAX #: [phone] Reason: severe HURLEY EXAMS: CPT CODE: [id number] CT HEAD/BRAIN W/O CONT [address] HEAD INDICATION: severe HURLEY. TECHNIQUE: Unenhanced CT was performed from the skull vertex to the foramen magnum with axial, coronal and sagittal reconstructions. CT imaging performed at this location utilizes radiation dose optimization technique which includes one or more of the followin) Automated exposure control; 2) Adjustment of the mA and/or kV according to patient's size; 3) Use of iterative reconstruction techniques. DLP (mGy-cm): 420 COMPARISONS: None. FINDINGS: The paranasal sinuses are clear as visualized. The mastoid air cells and middle ears appear clear as visualized. There is no acute depressed skull fracture. There is a mild burden of atherosclerotic vascular calcification of the intracranial arteries. The cerebral ventricles are normal caliber. There is mild generalized brain parenchymal volume loss. There is a small chronic area of encephalomalac ia within the right frontoparietal vertex. There is no cerebral mass effe ct, midline shift, intracranial hemorrhage or acute large vessel territory cerebral cortical edema. IMPRESSION: 1. Th ere is no acute intracranial process. No acute intracranial hemorrha ge or cerebral edema. 2. There is a small chronic area of encephalomala mikhail in the right frontoparietal vertex consistent with old insult. 3. There is mild generalized brain parenchymal volume loss. at 0391 Reported and signed by: Oscar Ozuna D.O. PAGE 1 Signed Repor t (CONTINUED) Name: KAVEH MEDINA [facility] : 1950 Age/S: 68 / F [address] [place] [address] Blvd Unit #: [id number] Loc: [place] [address] Phys: Osei Elizabeth MD Acct: [id number] Dis Date: Status: ADM IN PHONE #: [phone] Exam Date: 03/03/20193 FAX #: [phone] Reason: severe HURLEY EXAMS: CPT CODE: [id number] CT HEAD/BRAIN W/O CONT 40815 < Continued> CC: Vinnie Olson; Osei Elizabeth MD Technologist:Mari Staton, RT(R)(CT) CTDI: DLP: Trnscb Date/Time: 03/03/2019 (2235) [id number] Orig Print D/T: S: 03/03/2019 (9720) PAGE 2 Signed Report INFLUENZA A [id number] 20:11:00* Test Item Value Reference Range Interpretation Comments INFLUENZA A (test code = FLUAPCR) Negative Negative INFLUENZA B (test code = FLUBPCR) Negative Negative CBC W/AUTO [id number] 19:48:00* Test Item Value Reference Range Interpretation Comments WHITE BLOOD CELL (test code = WBC) 7.70 x10 3/uL 4.5-11.0 N RED BLOOD CELL (test code = RBC) 3.91 x10 6/uL 3.54-5.02 N HEMOGLOBIN (test code = HGB) 13.3 g/dL 11.0-15.0 N HEMATOCRIT (test code = HCT) 39.0 % 33.0-45.0 N MEAN CELL VOLUME (test code = MCV) 99.7 fL 81.0-99.0 H MEAN CELL HGB (test code = MCH) 34.0 pg 27.0-33.0 H MEAN CELL HGB CONCETRATION (test code = MCHC) 34.1 g/dL 33.0-37. 0 N RED CELL DISTRIBUTION WIDTH CV (test code = RDW) 13.5 % 11.5- 14.5 N RED CELL DISTRIBUTION WIDTH SD (test code = RDW-SD) 49.0 fL 37 .0-54.0 N PLATELET COUNT (test code = PLT) 230 x10 3/uL 150-400 N MEAN PLATELET VOLUME (test code = MPV) 11.6 fL 7.0-9.0 H NEUTROPHIL % (test code = NT%) 83.9 % 56.0-77.0 H IMMATURE GRANULOCYTE % (test code = IG%) 0.8 % 0.0-2.0 N LYMPHOCYTE % (test code = LY%) 12.3 % 14.0-32.0 L MONOCYTE % (test code = MO%) 2.7 % 4.8-9.0 L EOSINOPHIL % (test code = EO%) 0.0 % 0.3-3.7 L BASOPHIL % (test code = BA%) 0.3 % 0.0-2.0 N NUCLEATED RBC % (test code = NRBC%) 0.0 % 0-0 N NEUTROPHIL # (test code = NT#) 6.46 x10 3/uL 2.0-7.6 N IMMATURE GRANULOCYTE # (test code = IG#) 0.06 x10 3/uL 0.00-0.03 H LYMPHOCYTE # (test code = LY#) 0.95 x10 3/uL 1.0-3.8 L MONOCYTE # (test code = MO#) 0.21 x10 3/uL 0.1-0.8 N EOSINOPHIL # (test code = EO#) 0.00 x10 3/uL 0.0-0.2 N BASOPHIL # (test code = BA#) 0.02 x10 3/uL 0.0-0.2 N NUCLEATED RBC # (test code = NRBC#) 0.00 x10 3/uL 0.0-0.1 N MANUAL DIFF REQUIRED (test code = MDIFF) NO COMPREHENSIVE METABOLIC [id number] 19:23:00* Test Item Value Reference Range Interpretation Comments SODIUM (test code = NA) 138 mEq/L 134-147 N POTASSIUM (test code = K) 3.7 mEq/L 3.4-5.0 N CHLORIDE (test code = CL) 106 mEq/L 100-108 N CARBON DIOXIDE (test code = CO2) 27 mEq/L 21-33 N ANION GAP (test code = GAP) 9 0-20 N GLUCOSE (test code = GLU) 123 mg/dL 70-110 H BLOOD UREA NITROGEN (test code = BUN) 12 mg/dL 7-18 N GLOMERULAR FILTRATION RATE (test code = GFR) 82.7 70-80 H Units of measure = ml/min/1.73 m2 CREATININE (test code = CREAT) 0.7 mg/dL 0.6-1.3 N TOTAL PROTEIN (test code = PROT) 7.9 g/dL 6.4-8.2 N ALBUMIN (test code = ALB) 3.80 g/dL 3.4-5.0 N CALCIUM (test code = CA) 10.0 mg/dL 8.0-10.5 N BILIRUBIN TOTAL (test code = BILT) 0.90 mg/dL 0.0-1.0 N SGOT/AST (test code = AST) 66 IUnit/L 15-37 H SGPT/ALT (test code = ALT) 88 IUnit/L 15-65 H ALKALINE PHOSPHATASE TOTAL (test code = ALKP) 80 IUnit/L 20-125 N URINALYSIS [id number] 19:21:00* Test Item Value Reference Range Interpretation Comments UA COLOR (test code = COLU) YELLOW YEL/STRAW UA APPEARANCE (test code = APPU) CLEAR CLEAR UA GLUCOSE DIPSTICK (test code = DGLUU) NEGATIVE NEGATIVE UA BILIRUBIN DIPSTICK (test code = BILU) NEGATIVE NEGATIVE UA KETONE DIPSTICK (test code = KETU) 1+ NEGATIVE A UA SPECIFIC GRAVITY (test code = SGU) 1.014 1.005-1.030 N UA BLOOD DIPSTICK (test code = MANUEL) NEGATIVE NEGATIVE UA PH DIPSTICK (test code = LUZ ELENA) 7.0 5.0-7.0 N UA PROTEIN DIPSTICK (test code = PROU) NEGATIVE NEGATIVE UA UROBILINIOGEN DIPSTICK (test code = URO) 4.0 mg/dL 0.2-1.0 A UA NITRITE DIPSTICK (test code = DILCIA) NEGATIVE NEGATIVE UA LEUKOCYTE ESTERASE DIPSTICK (test code = LEUU) NEGATIVE NEGA TIVE UA RBC (test code = RBCU) 4-10 RBC/HPF 0-3 UA WBC NO REFLEX (test code = WBCUCL) 0-3 WBC/HPF 0-3 UA BACTERIA (test code = BACU) TRACE /HPF NONE SEEN UA SQUAMOUS CELLS (test code = SQU) 0-5 /HPF NONE SEEN UA MUCUS (test code = MUCU) TRACE /LPF NONE SEEN - XR CHEST 1 [id number] 19:05:00 FAX: Osei Guzman MD [phone] [place]: St: PRE Name: KAVEH ARTIS [facility] : [birth year] Age/S: 68/F [address] [place], [place] [address]vd Unit #: [id number] Loc: [address] [address] Phys: Osei Elizabeth MD Acct: [id number] Dis Date: Status: PRE ER PHONE #: [phone] Exam Date: 03/03/2019 1900 FAX #: [phone] Reason: fever EXAMS: CPT CODE: [id number] XR CHEST 1 V 40808 CHEST, SINGLE VIEW H ISTORY: Fever Comparison made to prior chest x-ray dated 8. FINDINGS: The lungs are clear. The heart size and pulmonary vascularity are within normal limits. IMPRESSIO N: No active process. SL:01 at 1905 Reported and signed by: Alfred Calabrese M.D. CC: Osei Elizabeth MD Technologist: Penelope Long, RT(R); Ann Alexander RT(R) [place] Date/Time/By: 03/03/2019 (1904) : By: Vita Orig Print D/T: S: 03/03/2019 (1907) PAGE 1 Signed Report CHEMISTRY 8 [id number] 19:02:00* Test Item Value Reference Range Interpretation Comments ISTAT-SODIUM (test code = NAP) MMOL/L 134-147 ISTAT-POTASSIUM (test code = KP) MMOL/L 3.4-5.0 ISTAT-CHLORIDE (test code = CLP) MMOL/L 100-108 ISTAT CARBON DIOXIDE (test code = ISTAT-CO2) mmol/L 21-33 N ISTAT CALCIUM IONIZED (test code = ISTAT-JONI) MG/DL 1.12-1.3 2 ISTAT-GLUCOSE (test code = GLUP) MG/DL 70-110 H ISTAT-BUN (test code = BUNP) MG/DL 7-18 N BEDSIDE CREATININE (test code = CREATBED) MG/DL 0.6-1.3 N GLOMERULAR FILTRATION RATE POC (test code = GFRBED) 105 ML/MIN CHEMISTRY 8 [id number] 19:02:00* Test Item Value Reference Range Interpretation Comments ISTAT-SODIUM (test code = NAP) 139 MMOL/L 134-147 N ISTAT-POTASSIUM (test code = KP) 3.9 MMOL/L 3.4-5.0 N ISTAT-CHLORIDE (test code = CLP) 104 MMOL/L 100-108 N Performed by certified cnc machine operator at [facility] ISTAT CARBON DIOXIDE (test code = ISTAT-CO2) 23.0 mmol/L 21-33 N ISTAT CALCIUM IONIZED (test code = ISTAT-JONI) 1.31 MG/DL 1.12-1.3 2 N ISTAT-GLUCOSE (test code = GLUP) 120 MG/DL 70-110 H ISTAT-BUN (test code = BUNP) 12 MG/DL 7-18 N BEDSIDE CREATININE (test code = CREATBED) 0.6 MG/DL 0.6-1.3 N GLOMERULAR FILTRATION RATE POC (test code = GFRBED) 105 ML/MIN TROPONIN-I [id number] 19:02:00* Test Item Value Reference Range Interpretation Comments TROPONIN-I RAPID (test code = TROPIRAP) 0.00 ng/mL 0.00-0.08 N Performed by certified cnc machine operator at [facility] Negative: <= 0.08 Positive: >= 0.09An elevated troponin value alone is not sufficient todiagnose a myocardial infarction. Rather, the patient sclinical presentation (history, physical exam) and ECGshould be used in conjunction with troponin in thediagnostic evaluation of suspected myocardial infarction. Aserial sampling protocol is recommended to facilitate the identification of temporal changes in troponin levels characteristic of MT. LACTIC ACID [id number] 18:56:00* Test Item Value Reference Range Interpretation Comments LACTIC ACID POC (test code = LACTP) 1.4 MMOL/L 0.90-1.70 N Performed by certified cnc machine operator at [facility]
== END 2020-02-15 20:59 | disposition home or self-care (01) ==
LOC: ER 18:41
DX: R07.89 Other chest pain (principal); R06.00 Dyspnea, unspecified; I10 Essential (primary) hypertension; K21.9 Gastro-esophageal reflux disease without esophagitis
CPT/HCPCS: 36415; 71045; 80053; 82550; 82553; 83880; 84484; 85025; 93005; 99284

== ENCOUNTER 2020-06-28 16:44 | Emergency (ER) | payer MEDICARE ==
[~2020-06-28] VITALS: Ht 162.6 cm; Wt 84.8 kg
[2020-06-28] MEDS ORDERED: ONDANSETRON HCL INJ 2MG/ML 2ML 2 MG/ML VIAL IV PRN (17:30)
[2020-06-28] MEDS ORDERED: PANTOPRAZOLE 40 MG 10ML VIAL IV NR (17:30)
[2020-06-28 18:06] LABS: BASOPHILS % 0.4 % (0.0-1.0); HEMATOCRIT 35.1 % (34.2-44.1); HEMOGLOBIN 11.3 g/dL (12.0-16.0); LYMPHOCYTES # (AUTO) 1.1 (1.0-3.2); LYMPHOCYTES % 11.7 % (18.0-39.1); MEAN CORPUSCULAR HEMOGLOBIN 30.7 pg (28-32); MEAN CORPUSCULAR HGB CONC 32.2 g/dL (31-35); MEAN CORPUSCULAR VOLUME 95.4 fL (81-99); MONOCYTES # (AUTO) 0.3 (0.2-0.8); MONOCYTES % 3.6 % (4.4-11.3); NEUTROPHILS # (AUTO) 7.7 (2.1-6.9); NEUTROPHILS % 83.9 % (38.7-80.0); PLATELET COUNT 231 x10e3/uL (140-360); RED BLOOD COUNT 3.68 x10e6/uL (3.6-5.1); RED CELL DISTRIBUTION WIDTH 12.8 % (11.7-14.4)
[2020-06-28 20:08] LABS: CLARITY,URINE CLEAR (CLEAR); COLOR,URINE YELLOW (YELLOW)
[2020-06-28 20:09] LABS: KETONES,URINE 1+ (NEGATIVE); LEUKOCYTE ESTERASE ,URINE NEGATIVE (NEGATIVE); NITRITE,URINE NEGATIVE (NEGATIVE); PROTEIN,URINE DIPSTICK NEGATIVE (NEGATIVE); URINE UROBILINOGEN 1 mg/dL (0.2 - 1)
[2020-06-28 20:22] LABS: ALANINE AMINOTRANSFERASE 45 IU/L (0-55); ALBUMIN 3.6 g/dL (3.5-5.0); ALBUMIN/GLOBULIN RATIO 1.1 (0.8-2.0); ALKALINE PHOSPHATASE 64 IU/L (40-150); ANION GAP 12.1 mmol/L (8-16); BLOOD UREA NITROGEN 26 mg/dL (7-26); BUN/CREATININE RATIO 39 (6-25); CARBON DIOXIDE 24 mmol/L (22-29); CHLORIDE 109 mmol/L (98-107); CREATININE, SERUM 0.67 mg/dL (0.57-1.11); EST GLOMERULAR FILTRATION RATE > 60 ML/MIN (60-); GLUCOSE 135 mg/dL (74-118); POTASSIUM 4.1 mmol/L (3.5-5.1); SODIUM 141 mmol/L (136-145)
[2020-06-28 20:25] LABS: BACTERIA,URINE MODERATE /HPF; EPITHELIAL CELLS,URINE FEW /LPF; RBC,URINE 0-5 /HPF (0-5); WBC,URINE (MAN) 0-5 /HPF (0-5)
[2020-06-28 20:26] LABS: MUCUS,URINE FEW (RARE)
[2020-06-28 21:18] LABS: LIPASE 28 U/L (8-78)
[2020-06-28] MEDS ORDERED: PROTONIX20 MG PO (21:19)
[2020-06-28] MEDS ORDERED: ZOFRAN4 MG PO (21:19)
[2020-06-28 21:39] VITALS: BP 100/82
== END 2020-06-28 21:41 | disposition home or self-care (01) ==
LOC: ER 17:31
DX: K92.0 Hematemesis (principal); R50.9 Fever, unspecified; I10 Essential (primary) hypertension; K21.9 Gastro-esophageal reflux disease without esophagitis; Z87.19 Personal history of other diseases of the digestive system
CPT/HCPCS: 36415; 71045; 80053; 81001; 83690; 85025; 86850; 86900; 99283; C9113

== ENCOUNTER 2021-10-04 13:04 | Emergency (ER) | payer MEDICARE ==
[~2021-10-04] VITALS: Ht 162.6 cm; Wt 51.3 kg
[~2021-10-04 13:04] MED LIST: PROTONIX20 MG PO; ZOFRAN4 MG PO
[2021-10-04] MEDS ORDERED: POTASSIUM CHLO20 ME1 PO (13:30)
[2021-10-04] MEDS ORDERED: COLACE100 MG PO (13:30)
[2021-10-04] MEDS ORDERED: BACLOFEN10 MG PO (13:30)
[2021-10-04] MEDS ORDERED: HYDROCODON-ACE1 EA11 (13:30)
[2021-10-04] MEDS ORDERED: FAMOTIDINE20 MG PO (13:30)
[2021-10-04] MEDS ORDERED: LOSARTAN POTASS25 MG PO (13:30)
[2021-10-04] MEDS ORDERED: ALLEGRA ALLERGY60 MG PO (13:30)
[2021-10-04] MEDS ORDERED: NEURONTIN100 MG PO (13:30)
[2021-10-04] MEDS ORDERED: HYDROCODONE/APAP 5MG-325MG TAB PO ONE (13:45)
[2021-10-04] MEDS ORDERED: HYDROCODONE/APAP 5MG-325MG TAB ONE (13:54)
[2021-10-04] MEDS ORDERED: PROMETHAZINE HCL 25 MG TAB PO STA (15:21)
[2021-10-04] MEDS ORDERED: PROMETHAZINE HCL 25 MG TAB ONE (15:35)
[2021-10-04] MEDS ORDERED: ONDANSETRON HCL 4 MG ORAL DISINTEGRATING TAB ONE (15:45)
[2021-10-04] MEDS ORDERED: ONDANSETRON HCL 4 MG ORAL DISINTEGRATING TAB PO ONE (15:45)
== END 2021-10-04 16:00 | disposition home or self-care (01) ==
LOC: FSED 13:40
DX: S40.011A Contusion of right shoulder, initial encounter (principal); S50.02XA Contusion of left elbow, initial encounter; W18.30XA Fall on same level, unspecified, initial encounter; Y93.01 Activity, walking, marching and hiking; Y92.008 Other place in unspecified non-institutional (private) residence as the place of occurrence of the external cause; I10 Essential (primary) hypertension; K21.9 Gastro-esophageal reflux disease without esophagitis; M54.9 Dorsalgia, unspecified; G89.29 Other chronic pain; Z85.028 Personal history of other malignant neoplasm of stomach
CPT/HCPCS: 73030; 73552; 73590; 73630; 99283; Q0162